=== PATIENT | male | born 1955 | race Caucasian/White ===

== ENCOUNTER → 2020-09-09 | Outpatient (REF) | payer MEDICARE ==
[~2020-09-09] MED LIST: ASPI81CH48 PO; CREO24CA PO; HYDR500C3 PO; SILV1CRE60 TOP
== END ==
LOC: M LAB REF 13:49
PROVIDERS: ATTEND Dermatology
DX: L85.9 Epidermal thickening, unspecified (principal)
CPT/HCPCS: 11102; 88305; G0463

== ENCOUNTER → 2020-11-19 | Outpatient (CLI) | payer MEDICARE ==
[~2020-11-19] MED LIST changes: +DUPI300P; +TRIA1OI TD
--- NOTE | 2020-11-19 11:43 | REP ---
INDICATION: TORTICOLLIS. COMPARISON: None. TECHNIQUE: Axial T1, T2, stir, FLAIR images of the brain obtained. FINDINGS: No evidence of restricted diffusion to suggest acute infarction. No gradient echo susceptibility to suggest hemorrhage. The ventricles and extra-axial CSF spaces are within normal limits for age. No mass effect or midline shift. No abnormal fluid collections. Paranasal sinuses and mastoid air cells are clear. IMPRESSION: No acute findings. Age-related volume loss. <Electronically signed by Jp Lindsay > 11/19/20 [id number]
--- NOTE | 2020-11-19 12:20 | REP ---
INDICATION: TORTICOLLIS. COMPARISON: None. TECHNIQUE: Sagittal T1, T2, stir images of the cervical spine obtained. Axial T1 and T2 weighted images obtained. FINDINGS: There is [id number] multilevel degenerative disc disease with loss of disc height and disc desiccation seen diffusely throughout the cervical spine. Vertebral heights are overall preserved. No malalignments. On the sagittal T2 weighted images, craniocervical junction is unremarkable. Cervical cord appears normal in its course, caliber and signal characteristics. There is no evidence of a limiting canal stenosis. On the review of axial images, At C2-3: Disc-osteophyte complex without significant canal or foraminal narrowing. At C3-4: Disc-osteophyte complex with mild bilateral foraminal narrowing and mild canal stenosis. At C4-5: Disc-osteophyte complex eccentric to the left with moderate left foraminal narrowing, hlad-pa-heajyamf canal narrowing, and mild right foraminal narrowing. At C5-6: Disc-osteophyte complex with cucasuzw-le-jvkmwu right foraminal narrowing, moderate left foraminal narrowing, and puzo-eh-yvmntxhj canal stenosis. At C6-7: Disc-osteophyte complex with koda-hi-ffmnabvt canal narrowing and immd-xc-qrxijiti bilateral foraminal narrowing. At C7-T1 no significant canal or foraminal narrowing. IMPRESSION: 1. Rqng-ov-vetffxfm multilevel degenerative disc disease. 2. No evidence of limiting canal stenosis. 3. Multilevel foraminal narrowing as described, appears more significant at C5-6 and C6-7 on the right (moderate). <Electronically signed by Jp Lindsay > 11/19/20 [id number]
== END ==
LOC: M PLARAD 10:08
PROVIDERS: ATTEND Nurse Practitioner Family
DX: M43.6 Torticollis (principal); M25.78 Osteophyte, vertebrae